=== PATIENT | male | born 1975 | race Caucasian/White ===

== ENCOUNTER 2017-06-10 18:08 | Emergency (ER) | payer OTHER ==
[~2017-06-10] VITALS: Ht 177.8 cm; Wt 123.9 kg
[2017-06-10 22:14] VITALS: BP 140/107
== END 2017-06-10 22:14 | disposition home or self-care (01) ==
LOC: ED 18:08
DX: I10 Essential (primary) hypertension (principal); Z88.0 Allergy status to penicillin; H81.10 Benign paroxysmal vertigo, unspecified ear